=== PATIENT | male | born 1975 | race Caucasian/White ===

== ENCOUNTER → 2019-11-25 11:51 | Outpatient (CLI) | payer OTHER, SELFPAY ==
--- NOTE | 2019-11-25 | ASPIG_PTH ---
PATIENT: SIDRA ASHTON LOC: [facility]#:[id number] AGE/SX: 49/M ROOM: RE11/25/[address]: Dr. Zaki Santamaria MD : 1975 BED: DIS: SPEC #: [id number] RECD: 11/25/19 13:03 STATUS: TARIK AZ #: [id number] DAKOTAH: 11/25/19 00:[address]: Zaki Santamaria DEPT: CYTOLOGY RECD BY: Faustino Coffman Tissues: Thyroid gland, NOS Procedures: FNA Specimen Adequacy Special Stain Group II Surgery Specimen Level IV Cytology Other HEADER OPERATION: Ultrasound-guided right thyroid biopsy PRE-OP DIAGNOSIS: Right thyroid nodule TISSUE SUBMITTED: Right thyroid DIAGNOSIS CYTOLOGY Fine needle aspiration, right thyroid nodule (smears and cell block): Blood and rare follicular cells. See comment. AM:isabel 11/26/19 COMMENT The specimen is evaluated at the time of FNA by Dr. Luis. Immediate Evaluation: Pass 1 - Blood Pass 2 - Blood Pass 3 - Blood and rare follicular cells. The material is insufficient for complete evaluation. Clinical correlation is necessary. CYTOLOGY STUDY Slides are reviewed. CYTOLOGY GROSS Pass 1 - Received is 0.5 ml of reddish fluid labeled with the patient's name, and designated right thyroid. Four imprints and two paps are made from the submitted fluid and the rest is added to CytoLyt for cell block preparation. Submitted for cytology study. Pass 2 - Received is 0.2 ml of reddish fluid labeled with the patient's name, and designated right thyroid. Four imprints and two paps are made from the submitted fluid and the rest is added to CytoLyt for cell block preparation. Submitted for cytology study. Pass 3 - Received is 0.2 ml of reddish fluid labeled with the patient's name, and designated right thyroid. Four imprints and one pap are made from the submitted fluid and the rest is added to CytoLyt for cell block preparation. Submitted for cytology study. / AM:isabel 11/25/19 TC:5 CPT: 68008, 22278 x3, 86123
--- NOTE | 2019-11-25 11:56 | US_ITS ---
PROCEDURE: ULTRASOUND GUIDED RIGHT THYROID FNA/BIOPSY. DATE: November 25, 2019 INDICATION: Male, 43 years old. Right thyroid nodules. PHYSICIAN: Nito Glasgow M.D. MEDICATIONS: 2% lidocaine administered subcutaneously for local anesthesia. ACCESS SITE: Right - anterior approach. NEEDLE: 25-gauge FNA needle. SPECIMEN: Multiple FNA specimen collected and given to pathology. EBL: None. COMPLICATIONS: None immediate. PROCEDURE: The risks, benefits, and alternatives to the procedure were explained to the patient. The specific risk of hemorrhage requiring further treatment or intervention was detailed and accepted. Written informed consent was obtained. The patient was brought into the ultrasound room and placed in the supine position on the stretcher. An appropriate entry site was identified. The overlying skin was prepped and draped in the usual sterile fashion. 2% lidocaine was administered subcutaneously for local anesthesia. Under ultrasound guidance, a 25-gauge FNA needle was advanced into the lesion. Aspiration was performed and the needle was withdrawn. A total of 4 passes were performed with specimen collected and given to the pathologist who was present during the procedure. Hemostasis was achieved with manual compression. Repeat ultrasound images of the biopsy area was performed which demonstrated no gross bleeding or hematoma. An antibiotic ointment dressing was placed and the patient was given an icepack. The patient tolerated the procedure well without immediate complications. The patient was discharged in stable condition. US/FNA 1st Biopsy w/ US IMPRESSION: Successful ultrasound-guided right thyroid nodule FNA/biopsy, as described above. Electronically Signed: Nito Glasgow, at 13:32 EDT , Service support ,
== END ==
PROVIDERS: PCP Family Medicine; Referring Provider Family Medicine; Visit Provider Family Medicine
DX: E04.1 Nontoxic single thyroid nodule (principal)
CPT/HCPCS: 10005; 88161; 88172; 88305; 88313

== ENCOUNTER → 2020-01-05 07:31 | Outpatient (CLI) | payer OTHER, SELFPAY ==
--- NOTE | 2020-01-05 | ASPIG_PTH ---
PATIENT: SIDRA ASHTON LOC: [facility]#:[id number] AGE/SX: 49/M ROOM: RE01/05/[address]: Dr. Zaki Santamaria MD : 1975 BED: DIS: SPEC #: [id number] RECD: 01/05/20 10:04 STATUS: TARIK AZ #: [id number] DAKOTAH: 01/05/20 00:[address]: Zaki Santamaria DEPT: CYTOLOGY RECD BY: Felipe Rivera Tissues: Thyroid gland, NOS Procedures: FNA Specimen Adequacy Special Stain Group II Surgery Specimen Level IV Cytology Other HEADER OPERATION: Ultrasound guided right thyroid nodule, FNA PRE-OP DIAGNOSIS: Right thyroid nodule TISSUE SUBMITTED: Right thyroid nodule DIAGNOSIS CYTOLOGY Right thyroid nodule, ultrasound-guided FNA (smears and cell block): Malignant cells present derived from papillary thyroid carcinoma. See comment. KAREEN:isabel 01/06/20 COMMENT The specimen is evaluated at the time of FNA by Dr. Patel. Immediate Evaluation = Adequate for evaluation. Follicular cells present. Correlation with clinical, radiologic findings and appropriate follow up are necessary. Immunohistochemistry ([id number]) supports the above diagnosis. Please make reference to previous specimen ([id number]) fine needle aspiration, right thyroid nodule with diagnosis of blood and rare follicular cells. Case has been reviewed in consultation with Dr. Luis who concurs with the above diagnosis. IDC:AM CYTOLOGY STUDY Slides are reviewed. CYTOLOGY GROSS Received in three passes is 0.2 ml of bloody fluid labeled with the patient's name, and designated right thyroid nodule. Six imprints and six paps are made from the submitted fluid and the rest is added to CytoLyt for cell block preparation. Submitted for cytology study. / KAREEN:isabel 01/05/20 TC:0 CPT: 28010, 79646, 40290
--- NOTE | 2020-01-05 | IMM_PTH ---
PATIENT: SIDRA ASHTON LOC: [facility]#:[id number] AGE/SX: 49/M ROOM: RE01/05/[address]: Dr. Zaki Santamaria MD : 1975 BED: DIS: SPEC #: [id number] RECD: 01/06/20 11:50 STATUS: TARIK AZ #: [id number] DAKOTAH: 01/05/20 00:[address]: Zaki Santamaria DEPT: IMMUNOHISTOCHEMISTRY RECD BY: Angela Paez Tissues: Thyroid gland, NOS Procedures: HBME (initial) CD56 (add) CK19 (add) GAL-3 (add) PHYSICIAN & INSTITUTION [place] [id number] SPECIMEN INFORMATION: Tissue Source: Right thyroid nodule Clinical Info: Right thyroid nodule Specimen Number: [id number] CPT code: 14962, 34248 x3 METHODOLOGY: Deparaffinized sections of prefer/formalin-fixed tissue or PAP/DQ stained slides are incubated with monoclonal/polyclonal antibodies/oligonucleotide probes. Localization is made via biotin free immunoperoxidase method. Appropriate controls are performed and reacted as expected. Results on target cell population are indicated in the following table: RESULTS: ANTIBODY / CLONE RESULT HBME1 (HBME-1) positive CK19 (A53-B/A2.26) positive GAL3 (9C4) positive CD56 (123C3.D5) negative These tests were developed and their performance characteristics determined by [facility]. They may not have been cleared or approved by the [place]. Food and Drug Administration. The FDA has determined that such clearance or approval is not necessary. The above immunohistochemical/dualISH markers are ordered and reviewed by the Pathologist. INTERPRETATION: Right thyroid nodule, ultrasound guided FNA: Malignant cells present derived from papillary thyroid carcinoma. SJ:isabel 01/07/20 Case has been reviewed in consultation with Dr. Luis who concurs with the above diagnosis. IDC:AM
--- NOTE | 2020-01-05 07:33 | US_ITS ---
PROCEDURE: ULTRASOUND GUIDED BIOPSY OF A NODULE IN THE RIGHT LOBE OF THE THYROID FNA/BIOPSY. DATE: January 05, 2020. INDICATION: Male, 44 years old. Solid nodule in the right lobe of the thyroid. PHYSICIAN: Nito Glasgow M.D. MEDICATIONS: 2% lidocaine administered subcutaneously for local anesthesia. ACCESS SITE: Right - anterior approach. NEEDLE: 22-gauge FNA needle. SPECIMEN: Multiple FNA specimen collected and given to pathology. EBL: None. COMPLICATIONS: None immediate. PROCEDURE: The risks, benefits, and alternatives to the procedure were explained to the patient. The specific risk of hemorrhage requiring further treatment or intervention was detailed and accepted. Written informed consent was obtained. The patient was brought into the ultrasound room and placed in the supine position on the stretcher. An appropriate entry site was identified. The overlying skin was prepped and draped in the usual sterile fashion. 2% lidocaine was administered subcutaneously for local anesthesia. Under ultrasound guidance, a 22-gauge FNA needle was advanced into the lesion. Aspiration was performed and the needle was withdrawn. A total of 4 passes were performed with specimen collected and given to the pathologist who was present during the procedure. Hemostasis was achieved with manual compression. Repeat ultrasound images of the biopsy area was performed which demonstrated no gross bleeding or hematoma. An antibiotic ointment dressing was placed and the patient was given an icepack. The patient tolerated the procedure well without immediate complications. The patient was discharged in stable condition. US/FNA 1st Biopsy w/ US IMPRESSION: Successful ultrasound-guided right thyroid nodule FNA/biopsy, as described above. Electronically Signed: Nito Glasgow, at 8:42 EDT , Service support ,
== END ==
PROVIDERS: PCP Family Medicine; Referring Provider Family Medicine; Visit Provider Family Medicine
DX: E04.1 Nontoxic single thyroid nodule (principal)
CPT/HCPCS: 10005; 88161; 88172; 88305; 88313; 88341; 88342